=== PATIENT | female | born 1970 | race African-American/Black ===

== ENCOUNTER 2016-04-03 12:55 | Inpatient (IN) | payer OTHER ==
[~2016-04-03] VITALS: Ht 162.6 cm; Wt 94.3 kg
[2016-04-03] MEDS ORDERED: IV NS 0.9% 1,000 ML BAG IV ONE ×2 (13:30→16:00)
[2016-04-03] MEDS ORDERED: ONDANSETRON HCL/PF 4 MG/2 ML VIAL IVP ONE (13:30)
[2016-04-03 13:41] LABS: ADD UA MICROSCOPIC NO; KETONES,URINE Negative (NEGATIVE); LEUKOCYTE ESTERASE ,URINE Negative (NEGATIVE); PH,URINE 6.5 (5.0-8.0)
[2016-04-03] MEDS ORDERED: IV SET PRIMARY 1 EA INFUS.SET MC ONE (13:48)
[2016-04-03] MEDS ORDERED: IV NS 0.9% 1,000 ML ONE ×2 (13:48→15:38)
[2016-04-03] MEDS ORDERED: ONDANSETRON HCL/PF 4 MG/2 ML VIAL ONE ×2 (13:48→15:41)
[2016-04-03 13:51] LABS: PREGNANCY TEST URINE QUAL NEGATIVE (NEGATIVE)
[2016-04-03 14:02] LABS: BASOPHILS # (AUTO) 0.1 /CMM (0.0-0.2); BASOPHILS % (AUTO) 1.2 % (0.0-2.0); DIFF TOTAL % 100 %; EOSINOPHILS # (AUTO) 0.4 /CMM (0.0-0.7); EOSINOPHILS % (AUTO) 4.3 % (0.0-6.0); HEMATOCRIT 45 % (33-45); HEMOGLOBIN 14.6 g/dL (11.5-14.8); LYMPHOCYTES # (AUTO) 3.7 /CMM (0.8-4.8); LYMPHOCYTES % (AUTO) 40.4 % (20.0-44.0); MEAN CORPUSCULAR HEMOGLOBIN 28 PG (26.0-33.0); MEAN CORPUSCULAR HGB CONC 33 g/dl (31.0-36.0); MEAN CORPUSCULAR VOLUME 86 fL (82-100); MONOCYTES # (AUTO) 0.5 /CMM (0.1-1.30); MONOCYTES % (AUTO) 5.5 % (2.0-12.0); NEUTROPHILS # (AUTO) 4.4 /CMM (1.8-8.9); NEUTROPHILS % (AUTO) 48.6 % (43.0-81.0); PLATELET COUNT (AUTO) 391 /CMM (150-450); WHITE BLOOD COUNT (AUTO) 9.1 K/uL (4.3-11.0)
[2016-04-03 14:10] LABS: CALCIUM, SERUM 9.2 mg/dL (8.5-10.1); CREATININE 0.8 mg/dL (0.6-1.3); POTASSIUM 4.5 mmol/L (3.5-5.1)
[2016-04-03 14:16] LABS: ALBUMIN 3.7 g/dL (3.4-5.0); BILIRUBIN,DIRECT 0.1 mg/dL (0.0-0.2); BILIRUBIN,TOTAL 0.6 mg/dL (0.2-1.0); INDIRECT BILIRUBIN 0.5 mg/dL (0.0-1.1); TOTAL PROTEIN, SERUM 6.8 g/dL (6.4-8.2)
[2016-04-03] MEDS ORDERED: MORPHINE SULFATE INJ 4 MG/ML DISP.SYRIN ONE ×2 (14:49→14:55)
[2016-04-03] MEDS ORDERED: MORPHINE SULFATE INJ 2 MG/ML DISP.SYRIN IV ONE (15:00)
[2016-04-03] MEDS ORDERED: IOHEXOL-300 100 ML VIAL IV ONE (15:16)
[2016-04-03] MEDS ORDERED: CT SWABBABLE VALVE TRANS SET 1 EA INFUS.SET MC ONE (15:16)
[2016-04-03] MEDS ORDERED: IV NS 0.9% 250 ML IV ONE (15:16)
[2016-04-03] MEDS ORDERED: ONDANSETRON HCL/PF 4 MG/2 ML VIAL IV ONE (16:00)
[2016-04-03] MEDS ORDERED: METOCLOPRAMIDE HCL 10 MG/2 ML VIAL IV ONE (17:30)
[2016-04-03] MEDS ORDERED: MORPHINE SULFATE INJ 4 MG/ML DISP.SYRIN IV ONE (17:30)
[2016-04-03] MEDS ORDERED: MORPHINE SULFATE INJ 2 MG/ML DISP.SYRIN ONE (17:30)
[2016-04-03] MEDS ORDERED: diphenhydrAMINE HCL 50 MG/ML VIAL IV ONE (17:30)
[2016-04-03] MEDS ORDERED: diphenhydrAMINE HCL 50 MG/ML VIAL ONE ×2 (17:31→17:35)
[2016-04-03] MEDS ORDERED: METOCLOPRAMIDE HCL 10 MG/2 ML VIAL ONE (17:31)
[2016-04-03 18:00] VITALS: BP 135/65
[2016-04-03] MEDS ORDERED: IV NS 0.9% 1,000 ML IV PRN (18:18)
[2016-04-03] MEDS ORDERED: ZOLPIDEM TARTRATE 5 MG TABLET PO PRN (18:30)
[2016-04-03] MEDS ORDERED: Z GUARD REMEDY 2 OZ OINT TP PRN (18:30)
[2016-04-03] MEDS ORDERED: DEXTROSE 50%-WATER 50 ML DISP.SYRIN IV PRN (18:30)
[2016-04-03] MEDS ORDERED: IV SET PRIMARY PUMP SET 1 EA INFUS.SET MC ONE (18:41)
[2016-04-03] MEDS: IV NS 0.9% 1,000 ML IV PRN (18:45)
[2016-04-03] MEDS: HYDROMORPHONE INJ 2 MG/ML DISP.SYRIN IV PRN ×2 (18:45→23:44)
[2016-04-03 20:00] VITALS: BP 137/92
[2016-04-03] MEDS: diphenhydrAMINE HCL 50 MG/ML VIAL IV PRN (20:24)
[2016-04-03] MEDS: BLOOD SUGAR DIAGNOSTIC 1 EACH STRIP IN SCH (22:00)
[2016-04-03] MEDS: INSULIN REGULAR, HUMAN 100 UNIT/ML 3 ML VIAL SQ PRN (22:04)
[2016-04-03] MEDS: ONDANSETRON HCL/PF 4 MG/2 ML VIAL IVP PRN (23:41)
[2016-04-04 04:00] VITALS: BP 126/77
[2016-04-04] MEDS: diphenhydrAMINE HCL 50 MG/ML VIAL IV PRN ×5 (04:00→22:36)
[2016-04-04] MEDS: IV NS 0.9% 1,000 ML IV PRN ×4 (04:00→22:48)
[2016-04-04] MEDS: BLOOD SUGAR DIAGNOSTIC 1 EACH STRIP IN SCH ×4 (07:29→21:52)
[2016-04-04 08:00] VITALS: BP 109/64
[2016-04-04 08:06] VITALS: BP 109/64
[2016-04-04] MEDS: PANTOPRAZOLE 40 MG VIAL IV SCH (08:21)
[2016-04-04] MEDS: HYDROMORPHONE INJ 2 MG/ML DISP.SYRIN IV PRN ×4 (08:22→22:35)
[2016-04-04] MEDS: ONDANSETRON HCL/PF 4 MG/2 ML VIAL IVP PRN ×2 (10:37→20:22)
[2016-04-04] MEDS: INSULIN REGULAR, HUMAN 100 UNIT/ML 3 ML VIAL SQ PRN ×3 (11:53→22:24)
[2016-04-04 15:06] LABS: BASOPHILS # (AUTO) 0.1 /CMM (0.0-0.2); BASOPHILS % (AUTO) 0.9 % (0.0-2.0); DIFF TOTAL % 100 %; EOSINOPHILS # (AUTO) 0.4 /CMM (0.0-0.7); EOSINOPHILS % (AUTO) 5.2 % (0.0-6.0); HEMATOCRIT 40 % (33-45); HEMOGLOBIN 12.7 g/dL (11.5-14.8); LYMPHOCYTES # (AUTO) 4.2 /CMM (0.8-4.8); LYMPHOCYTES % (AUTO) 51.6 % (20.0-44.0); MEAN CORPUSCULAR HEMOGLOBIN 28 PG (26.0-33.0); MEAN CORPUSCULAR HGB CONC 32 g/dl (31.0-36.0); MEAN CORPUSCULAR VOLUME 87 fL (82-100); MONOCYTES # (AUTO) 0.6 /CMM (0.1-1.30); MONOCYTES % (AUTO) 7.5 % (2.0-12.0); NEUTROPHILS # (AUTO) 2.8 /CMM (1.8-8.9); NEUTROPHILS % (AUTO) 34.8 % (43.0-81.0); PLATELET COUNT (AUTO) 343 /CMM (150-450); RED BLOOD CELL COUNT(AUTO) 4.53 MIL/uL (4.0-5.2); WHITE BLOOD COUNT (AUTO) 8.1 K/uL (4.3-11.0)
[2016-04-04 16:32] LABS: ALBUMIN 3.2 g/dL (3.4-5.0); BILIRUBIN,TOTAL 0.5 mg/dL (0.2-1.0); CALCIUM, SERUM 8.6 mg/dL (8.5-10.1); CREATININE 0.7 mg/dL (0.6-1.3); PHOSPHORUS 3.5 mg/dL (2.5-4.9); POTASSIUM 4.1 mmol/L (3.5-5.1)
[2016-04-04 16:46] LABS: THYROID STIMULATING HORMONE 2.868 uIU/mL (0.358-3.74)
[2016-04-04 20:00] VITALS: BP 132/93
[2016-04-04 20:59] VITALS: BP 132/93
[2016-04-05] MEDS: HYDROMORPHONE INJ 2 MG/ML DISP.SYRIN IV PRN ×4 (02:30→15:04)
[2016-04-05] MEDS: diphenhydrAMINE HCL 50 MG/ML VIAL IV PRN ×4 (02:30→15:04)
[2016-04-05 04:14] VITALS: BP 96/72
[2016-04-05] MEDS: IV NS 0.9% 1,000 ML IV PRN (06:16)
[2016-04-05] MEDS: BLOOD SUGAR DIAGNOSTIC 1 EACH STRIP IN SCH ×2 (06:38→12:08)
[2016-04-05 07:09] LABS: CALCIUM, SERUM 8.6 mg/dL (8.5-10.1); CREATININE 0.6 mg/dL (0.6-1.3); POTASSIUM 4.4 mmol/L (3.5-5.1)
[2016-04-05 07:10] LABS: BASOPHILS # (AUTO) 0.1 /CMM (0.0-0.2); BASOPHILS % (AUTO) 1.2 % (0.0-2.0); DIFF TOTAL % 100 %; EOSINOPHILS # (AUTO) 0.4 /CMM (0.0-0.7); EOSINOPHILS % (AUTO) 5.7 % (0.0-6.0); HEMATOCRIT 39 % (33-45); HEMOGLOBIN 12.8 g/dL (11.5-14.8); LYMPHOCYTES # (AUTO) 3.7 /CMM (0.8-4.8); LYMPHOCYTES % (AUTO) 47.3 % (20.0-44.0); MEAN CORPUSCULAR HEMOGLOBIN 29 PG (26.0-33.0); MEAN CORPUSCULAR HGB CONC 33 g/dl (31.0-36.0); MEAN CORPUSCULAR VOLUME 88 fL (82-100); MONOCYTES # (AUTO) 0.6 /CMM (0.1-1.30); MONOCYTES % (AUTO) 8.2 % (2.0-12.0); NEUTROPHILS # (AUTO) 2.9 /CMM (1.8-8.9); NEUTROPHILS % (AUTO) 37.6 % (43.0-81.0); PLATELET COUNT (AUTO) 310 /CMM (150-450); RED BLOOD CELL COUNT(AUTO) 4.47 MIL/uL (4.0-5.2); WHITE BLOOD COUNT (AUTO) 7.8 K/uL (4.3-11.0)
[2016-04-05 08:00] VITALS: BP 117/68
[2016-04-05] MEDS: PANTOPRAZOLE 40 MG VIAL IV SCH (08:10)
[2016-04-05] MEDS: INSULIN REGULAR, HUMAN 100 UNIT/ML 3 ML VIAL SQ PRN ×2 (08:13→12:11)
[2016-04-05] MEDS ORDERED: METHOCARBAMOL (750MG) 750 MG TABLET PO SCH (11:00)
[2016-04-05 16:00] VITALS: BP 116/85
== END 2016-04-05 16:28 | disposition home or self-care (01) | DRG 282 ==
LOC: ER 13:03 → MEDSG1 17:50
PROVIDERS: ADMIT Nurse Practitioner Acute Care; ATTEND Nurse Practitioner Acute Care
PROC: 05H533Z Insertion of Infusion Device into Right Subclavian Vein, Percutaneous Approach (ICD-10-PCS; principal; 2016-04-04)
PROC: B546ZZA Ultrasonography of Right Subclavian Vein, Guidance (ICD-10-PCS; principal; 2016-04-04)
DX: K85.90 Acute pancreatitis without necrosis or infection, unspecified (principal); K76.89 Other specified diseases of liver; J44.9 Chronic obstructive pulmonary disease, unspecified; E87.1 Hypo-osmolality and hyponatremia; F17.210 Nicotine dependence, cigarettes, uncomplicated; F20.9 Schizophrenia, unspecified; J45.909 Unspecified asthma, uncomplicated; Z79.4 Long term (current) use of insulin; Z90.49 Acquired absence of other specified parts of digestive tract; R74.0 Nonspecific elevation of levels of transaminase and lactic acid dehydrogenase [LDH]; Z90.81 Acquired absence of spleen; E10.9 Type 1 diabetes mellitus without complications; E66.9 Obesity, unspecified
CPT/HCPCS: 36415; 76705-TC; 80048-TC; 80053-TC; 80061-TC; 80076-TC; 81000-TC; 82962-TC; 83690-TC; 83735-TC; 84100-TC; 84443-TC; 84703-TC; 85025-TC; 87081-TC; 93307-TC; A4606; C9113; J1170; J1200; J1815; J2270; J2405; J2765; J7030; J7050; Q9967; Z7610